=== PATIENT | female | born 1935 | race Caucasian/White ===

== ENCOUNTER 2018-03-10 12:21 | Emergency (ER) | payer OTHER ==
[~2018-03-10] VITALS: Ht 157.5 cm; Wt 72.6 kg
[2018-03-10] MEDS ORDERED: TYLENOL WITH C1 EACH PO (14:46)
[2018-03-10] MEDS ORDERED: ARICEPT5 MG PO (15:06)
[2018-03-10] MEDS ORDERED: LOSARTAN POTASS25 MG PO (15:06)
[2018-03-10] MEDS ORDERED: AMLODIPINE BESYL5 MG PO (15:06)
[2018-03-10] MEDS ORDERED: HYDROCHLOROTHIA25 MG PO (15:06)
[2018-03-10] MEDS ORDERED: ATORVASTATIN CA20 MG PO (15:06)
[2018-03-10] MEDS ORDERED: METFORMIN HCL500 MG PO (15:06)
[2018-03-10] MEDS ORDERED: VENTOLIN HFA18 GM (15:06)
[2018-03-10] MEDS ORDERED: SYMBICORT 16010.2 GM (15:06)
[2018-03-10] MEDS ORDERED: GLIMEPIRIDE2 MG PO (15:06)
[2018-03-10] MEDS ORDERED: LEVOTHYROXINE88 MCG PO (15:06)
== END 2018-03-10 15:00 | disposition home or self-care (01) ==
LOC: FSED 12:21
DX: S92.355A Nondisplaced fracture of fifth metatarsal bone, left foot, initial encounter for closed fracture (principal); X50.1XXA Overexertion from prolonged static or awkward postures, initial encounter; Y92.008 Other place in unspecified non-institutional (private) residence as the place of occurrence of the external cause; I10 Essential (primary) hypertension; J44.9 Chronic obstructive pulmonary disease, unspecified; E11.9 Type 2 diabetes mellitus without complications; E78.5 Hyperlipidemia, unspecified
CPT/HCPCS: 99283

== ENCOUNTER 2018-03-14 16:18 | Inpatient (IN) | payer OTHER ==
[~2018-03-14] VITALS: Ht 157.5 cm; Wt 85.5 kg
[~2018-03-14 16:18] MED LIST: AMLODIPINE BESYL5 MG PO; ARICEPT5 MG PO; ATORVASTATIN CA20 MG PO; GLIMEPIRIDE2 MG PO; HYDROCHLOROTHIA25 MG PO; LEVOTHYROXINE88 MCG PO; LOSARTAN POTASS25 MG PO; METFORMIN HCL500 MG PO; SYMBICORT 16010.2 GM; TYLENOL WITH C1 EACH PO; VENTOLIN HFA18 GM
[2018-03-14] MEDS ORDERED: ONDANSETRON HCL INJ 2 MG/ML VIAL IV ONE (16:45)
[2018-03-14 16:48] LABS: BASOPHILS # (AUTO) 0.1 (0.0-0.1); BASOPHILS % 0.5 % (0.0-1.0); EOSINOPHILS # (AUTO) 0.1 (0.0-0.4); EOSINOPHILS % 0.8 % (0.0-6.0); HEMATOCRIT 45.3 % (34.2-44.1); HEMOGLOBIN 15.4 g/dL (12.0-16.0); LYMPHOCYTES # (AUTO) 2.5 (1.0-3.2); LYMPHOCYTES % 26.7 % (18.0-39.1); MEAN CORPUSCULAR HEMOGLOBIN 30.6 pg (28-32); MEAN CORPUSCULAR VOLUME 89.9 fL (81-99); MONOCYTES # (AUTO) 0.8 (0.2-0.8); MONOCYTES % 8.3 % (4.4-11.3); NEUTROPHILS # (AUTO) 5.9 (2.1-6.9); NEUTROPHILS % 63.3 % (38.7-80.0); PLATELET COUNT 289 x10e3/uL (140-360); RED BLOOD COUNT 5.04 x10e6/uL (3.6-5.1); RED CELL DISTRIBUTION WIDTH 14.5 % (11.7-14.4)
--- NOTE | 2018-03-14 17:18 | Diagnostic Imaging Report ---
PROCEDURE: A single AP view of the chest. COMPARISON: None. INDICATIONS: SOB FINDINGS: Lines/tubes: None. Lungs: The lungs are well-inflated. Linear opacity in the left midlung likely represent subsegmental atelectasis or scarring. No consolidation. Pleura: There is no pleural effusion or pneumothorax. Heart and mediastinum: Mild prominence of the cardiac silhouette, which may be partly due to portable AP projection. Central pulmonary venous congestion and perihilar interstitial opacities, likely reflecting mild edema. Bones: No acute bony abnormality. IMPRESSION: 1. central pulmonary venous congestion and perihilar interstitial opacities, likely reflecting mild edema/fluid overload. 2. Left midlung subsegmental atelectasis or scarring. Margarito Burnett M.D. Dictated by: Margarito Burnett M.D. on 03/14/2018 at 17:23 Electronically approved by: Margarito Burnett M.D. on 03/14/2018 at 17:23
[2018-03-14 18:22] LABS: ALANINE AMINOTRANSFERASE 16 IU/L (0-55); ALBUMIN 3.5 g/dL (3.5-5.0); ALBUMIN/GLOBULIN RATIO 0.9 (0.8-2.0); ALKALINE PHOSPHATASE 100 IU/L (40-150); ANION GAP 16.1 mmol/L (8-16); BLOOD UREA NITROGEN 20 mg/dL (7-26); BUN/CREATININE RATIO 25 (6-25); CALCIUM 9.4 mg/dL (8.4-10.2); CARBON DIOXIDE 31 mmol/L (22-29); CHLORIDE 97 mmol/L (98-107); CREATINE KINASE 357 IU/L (29-168); CREATININE, SERUM 0.81 mg/dL (0.57-1.11); EST GLOMERULAR FILTRATION RATE > 60 ML/MIN (60-); GLUCOSE 152 mg/dL (74-118); LIPASE 105 U/L (8-78); POTASSIUM 3.1 mmol/L (3.5-5.1); SODIUM 141 mmol/L (136-145)
[2018-03-14 19:41] LABS: BILIRUBIN,URINE NEGATIVE (NEGATIVE); CLARITY,URINE CLEAR (CLEAR); COLOR,URINE YELLOW (YELLOW); KETONES,URINE NEGATIVE (NEGATIVE); LEUKOCYTE ESTERASE ,URINE NEGATIVE (NEGATIVE); NITRITE,URINE NEGATIVE (NEGATIVE); PROTEIN,URINE DIPSTICK NEGATIVE (NEGATIVE); URINE UROBILINOGEN 0.2 mg/dL (0.2 - 1)
[2018-03-14] MEDS ORDERED: FUROSEMIDE INJ 10 MG/ML 4 ML VIAL IV ONE (19:45)
[2018-03-14 19:52] LABS: BACTERIA,URINE RARE /HPF; EPITHELIAL CELLS,URINE MANY /LPF; MUCUS,URINE FEW (RARE); RBC,URINE 0-5 /HPF (0-5)
--- NOTE | 2018-03-14 20:11 | Diagnostic Imaging Report ---
EXAM: CT Chest WITH contrast 03/14/2018 4:27 PM INDICATION: Shortness of breath. Cough. Pain. Pulmonary embolism? COMPARISON: None TECHNIQUE: Chest was scanned utilizing a multidetector helical scanner from the lung apex through the level of the adrenal glands without administration of IV contrast. Coronal and sagittal reformations were obtained. Pulmonary embolism protocol was performed. IV CONTRAST: 100 mL Isovue-370 RADIATION DOSE: Total DLP: 507.91 mGy*cm Estimated effective dose: (DLP x 0.014 x size factor) mSv COMPLICATIONS: None FINDINGS: LINES/ TUBES: None. LUNGS AND AIRWAYS: No filling defects within the pulmonary arteries to the segmental level bilaterally. Bilateral upper lobe emphysematous changes. Right basilar and lingular subsegmental linear atelectasis. PLEURA: No pleural effusion or pneumothorax. HEART AND MEDIASTINUM: Calcification the left thyroid lobe posteriorly. No mediastinal, hilar or axillary lymphadenopathy. The heart is normal in size. Left ventricular hypertrophy versus image obtaining during diastolic phase. There is no pericardial effusion. There are moderate atherosclerotic calcifications in the aorta and coronary arteries. Soft ulcerated plaque in the posterior aspect of the distal descending thoracic aorta on image 85and 86 and series 2. The main pulmonary artery measures 3.1 cm in diameter, mildly dilated. UPPER ABDOMEN: Limited non-contrast views of the upper abdomen show no abnormality within the visualized liver, spleen, pancreas, or kidneys. The adrenal glands demonstrate low-attenuation nodules the largest on the right measuring 1.4 cm on image 106 series 2 consistent with adenomata. BONES: No acute osseous abnormality. Bone island in a mid thoracic vertebra. Degenerative changes of the lower cervical spine. SOFT TISSUES: Unremarkable. IMPRESSION: 1. No evidence of pulmonary embolism. 2. Bilateral upper lobe emphysematous changes. 3. Bilateral subsegmental linear atelectasis. Signed by: Dr. El Balderas M.D. on 03/14/2018 8:08 PM
[2018-03-14] MEDS ORDERED: IPRATROPIUM BROMIDE 0.02% 2.5 ML NEB NEB ONE (21:30)
[2018-03-14] MEDS ORDERED: METHYLPREDNISOLONE SOD SUCC 125 MG/2ML VIAL IV ONE (21:30)
[2018-03-14] MEDS ORDERED: ALBUTEROL SULF 0.083% NEB SOLN 3 ML NEB NEB ONE (21:45)
[2018-03-14 21:54] LABS: ABG HCO3 40 mmol/L (23-28); ABG PCO2 79 mmHg (41-51); ABG PH 7.31 (7.31-7.41); ABG PO2 131 mmHg (80-105)
[2018-03-14] MEDS: METHYLPREDNISOLONE SOD SUCC 125 MG/2ML VIAL IV SCH (22:00)
[2018-03-14] MEDS ORDERED: ONDANSETRON HCL INJ 2 MG/ML VIAL IV PRN (22:00)
[2018-03-14] MEDS ORDERED: SODIUM CHLORIDE 0.9% 100 ML 100 ML ONE (22:30)
[2018-03-14] MEDS ORDERED: IOPAMIDOL 370 MG/ML 200 ML INFUS..BTL INJ ONE (22:30)
[2018-03-14] MEDS: IPRATROPIUM BROMIDE 0.02% 2.5 ML NEB NEB SCH (23:00)
[2018-03-14] MEDS: ALBUTEROL SULF 0.083% NEB SOLN 3 ML NEB NEB SCH (23:00)
[2018-03-14 23:43] LABS: ABG HCO3 18 mmol/L (23-28); ABG PCO2 66 mmHg (41-51); ABG PH 7.42 (7.31-7.41); ABG PO2 222 mmHg (80-105)
[2018-03-15] VITALS (12 sets, daily range): BP systolic 95–157; BP diastolic 47–95
[2018-03-15] MEDS: AZITHROMYCIN 500MG/NS 250 ML 250 ML IV SCH ×2 (00:57→21:05)
[2018-03-15] MEDS: FAMOTIDINE 20 MG/2 ML VIAL IV SCH ×3 (00:58→22:02)
[2018-03-15] MEDS: ALBUTEROL SULF 0.083% NEB SOLN 3 ML NEB NEB SCH ×6 (02:40→23:30)
[2018-03-15] MEDS: IPRATROPIUM BROMIDE 0.02% 2.5 ML NEB NEB SCH ×6 (03:15→23:30)
[2018-03-15] MEDS: METHYLPREDNISOLONE SOD SUCC 125 MG/2ML VIAL IV SCH ×3 (05:58→22:02)
[2018-03-15 06:36] LABS: BASOPHILS % 0.3 % (0.0-1.0); HEMATOCRIT 44.6 % (34.2-44.1); HEMOGLOBIN 14.3 g/dL (12.0-16.0); LYMPHOCYTES # (AUTO) 0.7 (1.0-3.2); LYMPHOCYTES % 7.9 % (18.0-39.1); MEAN CORPUSCULAR HEMOGLOBIN 29.9 pg (28-32); MEAN CORPUSCULAR HGB CONC 32.1 g/dL (31-35); MEAN CORPUSCULAR VOLUME 93.3 fL (81-99); MONOCYTES # (AUTO) 0.1 (0.2-0.8); MONOCYTES % 1.5 % (4.4-11.3); NEUTROPHILS # (AUTO) 8.3 (2.1-6.9); NEUTROPHILS % 89.9 % (38.7-80.0); PLATELET COUNT 320 x10e3/uL (140-360); RED BLOOD COUNT 4.78 x10e6/uL (3.6-5.1); RED CELL DISTRIBUTION WIDTH 14.4 % (11.7-14.4)
[2018-03-15 07:14] LABS: ALBUMIN 3.3 g/dL (3.5-5.0); ALBUMIN/GLOBULIN RATIO 0.9 (0.8-2.0); ANION GAP 17.1 mmol/L (8-16); CHOL/HDL RATIO 2.6 (3.0-3.6); CREATINE KINASE 225 IU/L (29-168); CREATININE, SERUM 0.92 mg/dL (0.57-1.11); POTASSIUM 4.1 mmol/L (3.5-5.1)
[2018-03-15 08:18] LABS: ABG PH 7.33 (7.31-7.41)
[2018-03-15 08:20] LABS: ABG HCO3 41 mmol/L (23-28); ABG PCO2 78 mmHg (41-51); ABG PO2 105 mmHg (80-105)
[2018-03-15] MEDS ORDERED: ACETAMINOPHEN 325 MG TAB PO PRN (12:45)
[2018-03-15] MEDS ORDERED: DEXTROSE 50% SYRINGE 50 ML IV PRN (12:45)
[2018-03-15] MEDS ORDERED: ONDANSETRON HCL INJ 2 MG/ML VIAL IV PRN (12:45)
[2018-03-15] MEDS ORDERED: FUROSEMIDE INJ 10 MG/ML 4 ML VIAL IV NR (13:00)
--- NOTE | 2018-03-15 13:25 | History and Physical ---
CHIEF COMPLAINT: Shortness of breath. HPI: This is an 82-year-old female, morbidly obese, known history of COPD, currently smoking and has history of hypertension and diabetes, comes into the ED with complaints of underlying shortness of breath ongoing since yesterday. Patient reports she was having some wheezing, cough and congestion but no fever at home. She reports that she is being managed currently by her primary care physician. She does not see a greenhouse superintendent as an outpatient. She denies any chest pain, palpitations, nausea or vomiting. Patient seen and evaluated at bedside in the ER, currently doing well with no other complaints. Last night, she was on BiPAP and now weaned off to nasal cannula, currently on 10 liters, and her blood pressure is stable. REVIEW OF SYSTEMS: Pertinent positives: Shortness of breath, wheezing, cough, congestion. Pertinent negatives: Denies any chest pain, palpitations, nausea, vomiting, diarrhea, dysuria, hematuria, frequency, urgency, lightheadedness, dizziness, abdominal pain, headache, fever, cough or any other complaints. The rest of the 14-point review of systems has been reviewed with the patient and are negative. ALLERGIES: NO KNOWN DRUG ALLERGIES. HOME MEDICATIONS 1. Albuterol. 2. Norvasc 5 mg daily. 3. Lipitor 20 mg daily. 4. Symbicort 1 puff inhaled daily. 5. Aricept 10 mg daily. 6. Glimepiride 2 mg p.o. b.i.d. 7. Hydrochlorothiazide 25 mg daily. 8. Levothyroxine 188 mcg daily. 9. Losartan 25 mg daily. 10. Metformin 500 mg b.i.d. PAST MEDICAL HISTORY: COPD, diabetes, dementia, hyperlipidemia, hypertension. PAST SURGICAL HISTORY: None. FAMILY HISTORY: Hypertension, diabetes. SOCIAL HISTORY: No drugs, no alcohol. She does smoke, and she continues to smoke. VITAL SIGNS: Temperature is 97.5, pulse 77, respiratory rate 20, blood pressure 106/61, pulse ox 97%. She is on 10 liters nasal cannula. LAB FINDINGS: White count 9.2, hemoglobin 14, hematocrit 44, platelets 320. ABG showed pH 7.3, pCO2 of 78, pO2 is 105, bicarbonate is 41, FiO2 is 60%. Chemistry: Sodium 142, potassium 4.1, chloride 92, bicarb 37, anion gap 11, BUN 18, creatinine 0.9, calcium 9. Troponin is negative. Lipase 105. BNP is 43.9. Urinalysis was negative. MICROBIOLOGY: Blood cultures pending. IMAGING STUDIES: Chest x-ray shows central venous vascular congestion and perihilar issues likely reflecting edema of fluid overload. CT chest shows no evidence of pulmonary embolism. Bilateral upper lobe emphysematous changes. PHYSICAL EXAMINATION GENERAL: Not in acute distress. Alert and oriented x3. Cooperative on exam. HEENT: Head is normocephalic and atraumatic. Eyes: Pupils are equal and reactive to light bilaterally. The extraocular movements are intact bilaterally. NECK: Supple with good range of motion. THROAT: No evidence of severe erythema or exudates. The posterior pharynx has poor dentition. PULMONARY: Expiratory wheezing appreciated, positive rales. She is on 10 liters nasal cannula. No crackles appreciated. CARDIOVASCULAR: Positive S1, S2. No murmurs, rubs or gallops appreciated. ABDOMEN: Soft, nondistended and nontender to palpation. Bowel sounds are present. MUSCULOSKELETAL: Strength is 5/5 throughout. No evidence of any musculoskeletal deficit on examination. No weakness appreciated. NEUROLOGIC: Cranial nerves II through XII are grossly intact. No evidence of any neurologic deficits on exam. SKIN: Intact, warm to touch. Good cap refill. PSYCHIATRIC: Normal affect. EXTREMITIES: No edema. Good range of motion throughout. IMPRESSION 1. Acute exacerbation of chronic obstructive pulmonary disease. 2. Hypertension. 3. Type-2 diabetes. 4. Acute hypoxemia respiratory failure secondary to acute exacerbation of chronic obstructive pulmonary disease. 5. Prophylaxis. 6. Hypothyroidism. PLAN: At this time, pulmonary has been consulted. She is on IV steroid, neb treatments and antibiotics. We are going to resume all of her antihypertensive medications. Put on Lovenox for DVT prophylaxis. Blood cultures are pending. Put on insulin sliding scale for her diabetes. Pain control. P.R.N. hydralazine. Otherwise, we will continue to follow. Job#: [id number]
--- NOTE | 2018-03-15 14:27 | Consultation ---
DATE OF CONSULTATION: PULMONARY/CRITICAL CARE CONSULTATION CONSULTING PHYSICIAN: Dr. Sauer. REASON FOR THE CONSULT: COPD exacerbation, respiratory failure. HPI: Ms. Davenport is an 82-year-old female. She is a smoker for 60 years, she smokes a pack a day. She presented to the emergency room with worsening shortness of breath going on for last 3 to 4 days. A week ago, she fell and she had a possible tarsal bone fracture per the daughter's report and she has a boot, which was placed by a freestanding emergency room in the left foot. In the emergency room, patient underwent CT chest to rule out PE as she had this boot in the left leg and immobility. CT showed no evidence of pulmonary embolism, showed some atelectasis. She was hypercapnic in the emergency room and patient was started on BiPAP and she has been feeling better. She is awake and alert now. She is still hypercapnic with a normal pH. REVIEW OF SYSTEMS GENERAL: Denies any fevers or chills. HEAD: Denies any head trauma. ENT: Denies any earache. CVS: Denies any chest pain. RESPIRATORY: Shortness of breath. GI: Denies any nausea or vomiting. The rest of the review of systems is negative except as in HPI. PAST MEDICAL HISTORY: Hypertension, diabetes, and COPD. PAST SURGICAL HISTORY: Bladder cancer surgery. FAMILY AND SOCIAL HISTORY: She used to work in [employer]. She has been a smoker for 60 years, still smokes a pack a day. She does not drink. Lives with her daughter. PHYSICAL EXAMINATION VITAL SIGNS: Temperature 98.6, pulse is 74, blood pressure 108/60, respiratory rate of 18, O2 sat 99%. She is on 60% FiO2 and I weaned down to 50% FiO2 on BiPAP. She has been feeling better. HEENT: Head atraumatic, normocephalic. Oral mucosa is dry. NECK: Supple. No JVD. CHEST: Wheezing bilaterally. HEART: S1 and S2 audible. ABDOMEN: Soft, nontender, nondistended. EXTREMITIES: No pedal edema. Left leg in boot. NEUROLOGIC: Awake, alert. No focal neurologic deficit. LABORATORY DATA: ABG showing pH of 7.33, pCO2 of 78, this was this morning. Last night when she came in, pH was 7.3 and pCO2 of 79. Chemistries within normal limits with a bicarb of 37. On admission, her bicarbonate was 31. White count of 9000, hemoglobin 14.3, platelets 320. I have reviewed the CT images, there is no evidence of pneumonia. ASSESSMENT: Ms. Davenport is an 82-year-old female presented to the emergency room with worsening shortness of breath, wheezing, and coughing. She is a smoker, likely in acute chronic obstructive pulmonary disease exacerbation. She has clwic-gu-dmnopfw hypercapnic respiratory failure with her bicarbonate at baseline being in 30s. CURRENT PROBLEMS 1. Acute exacerbation of chronic obstructive pulmonary disease. 2. Dtnta-pz-awagytu hypercapnic respiratory failure. 3. Obesity. 4. Hypertension. 5. Recent immobility due to the fracture of the tarsal bone and she has a boot in her left leg. PLAN 1. Continue the patient on IV Solu-Medrol. 2. Nebulizer treatment will continue. 3. BiPAP setting reviewed, observed her on BiPAP at bedside. She is pulling around 1200 mL of tidal volume. Reduce the IPAP and EPAP and reduce the FiO2. She has been doing well. I have asked the respiratory to give her a break from BiPAP and oxygen and see how she is doing. Patient will be observed in IMCU or ICU because of BiPAP use. Discussed with patient's daughter at bedside in detail. Critical care time spent 50 minutes. Thank you for this consult. Job#: [id number] KATY
[2018-03-15 15:03] LABS: CREATINE KINASE 179 IU/L (29-168)
[2018-03-15] MEDS: ENOXAPARIN SOD INJ 40 MG/0.4 ML SYR SC SCH (17:31)
[2018-03-15] MEDS: GLIMEPIRIDE 2 MG TAB PO SCH (17:31)
[2018-03-15] MEDS: INSULIN REGULAR, HUMAN 100 UNIT/1 ML 3ML VIAL SQ SCH ×2 (17:31→21:31)
[2018-03-15] MEDS ORDERED: CLOTRIMAZOLE-BE15 GM TOP (19:15)
[2018-03-15] MEDS ORDERED: FUROSEMIDE INJ 10 MG/ML 2 ML VIAL IV ONE (19:30)
[2018-03-15] MEDS ORDERED: SODIUM CHLORIDE 0.9% 250ML 250 ML ONE (20:54)
[2018-03-15] MEDS: DONEPEZIL HCL 5 MG TAB PO SCH (21:04)
[2018-03-15] MEDS: ATORVASTATIN 20 MG TAB PO SCH (21:05)
[2018-03-16] VITALS (7 sets, daily range): BP systolic 104–140; BP diastolic 53–75
[2018-03-16] MEDS: IPRATROPIUM BROMIDE 0.02% 2.5 ML NEB NEB SCH ×6 (03:00→23:00)
[2018-03-16] MEDS: ALBUTEROL SULF 0.083% NEB SOLN 3 ML NEB NEB SCH ×6 (03:00→23:00)
[2018-03-16 05:20] LABS: BASOPHILS % 0.1 % (0.0-1.0); HEMATOCRIT 40.7 % (34.2-44.1); HEMOGLOBIN 13.2 g/dL (12.0-16.0); LYMPHOCYTES # (AUTO) 0.5 (1.0-3.2); LYMPHOCYTES % 4.4 % (18.0-39.1); MEAN CORPUSCULAR HEMOGLOBIN 30.2 pg (28-32); MEAN CORPUSCULAR HGB CONC 32.4 g/dL (31-35); MEAN CORPUSCULAR VOLUME 93.1 fL (81-99); MONOCYTES # (AUTO) 0.4 (0.2-0.8); MONOCYTES % 2.9 % (4.4-11.3); NEUTROPHILS # (AUTO) 11.4 (2.1-6.9); NEUTROPHILS % 92.3 % (38.7-80.0); PLATELET COUNT 305 x10e3/uL (140-360); RED BLOOD COUNT 4.37 x10e6/uL (3.6-5.1); RED CELL DISTRIBUTION WIDTH 13.9 % (11.7-14.4)
[2018-03-16 05:36] LABS: ANION GAP 16.3 mmol/L (8-16); CALCIUM 8.5 mg/dL (8.4-10.2); CREATININE, SERUM 0.93 mg/dL (0.57-1.11); POTASSIUM 3.3 mmol/L (3.5-5.1)
[2018-03-16] MEDS: METHYLPREDNISOLONE SOD SUCC 125 MG/2ML VIAL IV SCH (05:41)
[2018-03-16] MEDS: LEVOTHYROXINE SODIUM 88 MCG TAB PO SCH (05:41)
[2018-03-16] MEDS ORDERED: BUDESONIDE/FORMOTEROL 160/4.5MCG INHALER INH SCH (06:00)
[2018-03-16] MEDS: INSULIN REGULAR, HUMAN 100 UNIT/1 ML 3ML VIAL SQ SCH ×4 (06:35→20:57)
[2018-03-16] MEDS: HYDROCHLOROTHIAZIDE 25 MG TAB PO SCH (09:00)
[2018-03-16] MEDS: GLIMEPIRIDE 2 MG TAB PO SCH ×2 (09:00→17:28)
[2018-03-16] MEDS: AMLODIPINE BESYLATE 5 MG TAB PO SCH (09:00)
[2018-03-16] MEDS: LOSARTAN POTASSIUM 25 MG TAB PO SCH (09:00)
[2018-03-16] MEDS: FAMOTIDINE 20 MG/2 ML VIAL IV SCH ×2 (09:20→20:59)
[2018-03-16] MEDS: BUDESONIDE/FORMOTEROL 160/4.5MCG INHALER INH SCH ×2 (12:09→19:05)
[2018-03-16] MEDS ORDERED: POTASSIUM CHLORIDE 20MEQ/15ML UDC PO NR (13:15)
[2018-03-16] MEDS ORDERED: METHYLPREDNISOLONE SOD SUCC 40 MG/ML VIAL IV SCH ×2 (14:00→21:00)
[2018-03-16] MEDS ORDERED: INSULIN REGULAR, HUMAN 100 UNIT/1 ML 3ML VIAL SQ ONE (14:30)
[2018-03-16] MEDS: ENOXAPARIN SOD INJ 40 MG/0.4 ML SYR SC SCH (17:28)
--- NOTE | 2018-03-16 20:08 | Progress Note ---
DATE: SUBJECTIVE: The patient is doing well overnight with no issues. She is still very short of breath on examination. She has been afebrile and vitals were stable. She is tolerating diet well. Still on 8 L of nasal cannula. PHYSICAL EXAMINATION VITAL SIGNS: Temperature is 97.2, pulse 86, respiratory rate 12, blood pressure 121/63, and she is on 8 L nasal cannula as we speak. GENERAL: Not in acute distress. Alert and oriented times 3. Cooperative on examination. HEENT: Head is normocephalic and atraumatic. Eyes: Pupils equal, round and reactive to light bilaterally. Extraocular muscles intact bilaterally. NECK: Supple. Good range of motion. Throat with no evidence of any erythema or exudates in the posterior pharynx. Has poor dentition. PULMONARY: She has decreased breath sounds bilaterally with expiratory wheezing appreciated. No crackles. No rales. No rhonchi. CARDIOVASCULAR: Positive S1 and S2. No murmurs, rubs or gallops appreciated. ABDOMEN: Soft, nondistended and nontender to palpation. Bowel sounds present. MUSCULOSKELETAL: Strength is 5/5 throughout. No evidence of muscle weakness on examination. No weakness appreciated. NEUROLOGICAL: Cranial nerves II-XII are grossly intact. No evidence of any neurological deficit on exam. SKIN: Intact. Warm to touch. Good cap refill. PSYCHIATRIC: Normal affect and mood. EXTREMITIES: No edema. Good range of motion throughout. LAB FINDINGS: Shows white count is 12.3, hemoglobin 13.2, hematocrit 40, and platelets of 305,000. Chemistry: Sodium 137, potassium 3.3, chloride 93, bicarb 31, anion gap of 16, BUN is 33, creatinine is 0.93. Glucose was 322 point of care. Calcium is 8.5. Troponins were negative. MICROBIOLOGY: Blood cultures were negative. IMPRESSION 1. Acute exacerbation of chronic obstructive pulmonary disease. 2. Hypertension. 3. Uncontrolled type 2 diabetes. 4. Acute hypoxemic respiratory failure secondary to acute exacerbation of chronic obstructive pulmonary disease. 5. Hypothyroidism. PLAN: At this time, will continue same plan of care with IV steroids, neb treatments and antibiotics. The patient's sugars are really out of control, which I will decrease the Solu-Medrol to 40 mg IV q.12 h. Pulmonary is following. She is still on 8 L nasal cannula, and she still has significant amount of time here before she is able to be discharged. Her blood pressure is well managed and controlled. Her glucose levels have been really high in which the insulin was adjusted accordingly. The patient was given several rounds of regular insulin during the day as well. Will try minimize blood draws as the family does not want any blood sticks. Will continue to follow. Job#: [id number] DEEPTHI
[2018-03-16] MEDS: ATORVASTATIN 20 MG TAB PO SCH (20:57)
[2018-03-16] MEDS: DONEPEZIL HCL 5 MG TAB PO SCH (20:57)
[2018-03-16] MEDS: AZITHROMYCIN 500MG/NS 250 ML 250 ML IV SCH (20:57)
[2018-03-17] VITALS (7 sets, daily range): BP systolic 122–154; BP diastolic 52–86
[2018-03-17] MEDS: ALBUTEROL SULF 0.083% NEB SOLN 3 ML NEB NEB SCH ×7 (03:54→22:20)
[2018-03-17] MEDS: IPRATROPIUM BROMIDE 0.02% 2.5 ML NEB NEB SCH ×6 (04:30→22:20)
[2018-03-17] MEDS ORDERED: LORAZEPAM 0.5 MG TAB PO ONE (04:45)
[2018-03-17] MEDS: LEVOTHYROXINE SODIUM 88 MCG TAB PO SCH (04:56)
[2018-03-17] MEDS: BUDESONIDE/FORMOTEROL 160/4.5MCG INHALER INH SCH ×2 (07:37→19:15)
[2018-03-17] MEDS: GLIMEPIRIDE 2 MG TAB PO SCH ×2 (08:00→16:48)
[2018-03-17] MEDS: INSULIN REGULAR, HUMAN 100 UNIT/1 ML 3ML VIAL SQ SCH ×4 (08:05→21:29)
[2018-03-17] MEDS: HYDROCHLOROTHIAZIDE 25 MG TAB PO SCH (09:00)
[2018-03-17] MEDS: AMLODIPINE BESYLATE 5 MG TAB PO SCH (09:00)
[2018-03-17] MEDS: LOSARTAN POTASSIUM 25 MG TAB PO SCH (09:00)
[2018-03-17] MEDS: FAMOTIDINE 20 MG/2 ML VIAL IV SCH ×2 (10:00→22:08)
[2018-03-17] MEDS: PANTOPRAZOLE SOD 40 MG TABEC PO SCH (11:00)
[2018-03-17] MEDS ORDERED: SUCRALFATE 1 GM/10 ML SUSP NG PRN (11:00)
[2018-03-17] MEDS: NICOTINE 21 MG/EA PATCH TOP SCH (11:15)
[2018-03-17] MEDS: ENOXAPARIN SOD INJ 40 MG/0.4 ML SYR SC SCH (16:48)
--- NOTE | 2018-03-17 17:26 | Progress Note ---
DATE: SUBJECTIVE: The patient is still on 8-10 L of high flow oxygen. She still is very short of breath. She also has some sundowning overnight in which she tries to get out of the bed. The patient is alert and oriented times 3 on examination today with no other issues. OBJECTIVE VITAL SIGNS: Temperature is 98.4, pulse 88, respiratory rate 18. She is on 100% oxygen on 10 L high flow. GENERAL: Not in acute distress. Alert and oriented times 3. Cooperative on examination. HEENT: Head is normocephalic and atraumatic. Eyes: Pupils equal, round and reactive to light bilaterally. Extraocular movements intact bilaterally. NECK: Supple. Good range of motion. Throat with no evidence of any erythema or exudates in the posterior pharynx. Has poor dentition. PULMONARY: She has expiratory wheezing appreciated on 10 L of high flow oxygen. CARDIOVASCULAR: Positive S1 and S2. No murmurs, rubs or gallops appreciated. ABDOMEN: Soft, nondistended and nontender to palpation. Bowel sounds present. MUSCULOSKELETAL: Strength is 5/5 throughout. No evidence of any motor deficit on examination. No weakness appreciated. NEUROLOGICAL: Cranial nerves II-XII are grossly intact. No evidence of any neurological deficits on exam. SKIN: Intact. Warm to touch. Good cap refill. PSYCHIATRIC: Normal affect and mood. EXTREMITIES: No edema. Good range of motion throughout. LAB FINDINGS: None. IMAGING STUDIES: None. IMPRESSION 1. Acute exacerbation of chronic obstructive pulmonary disease: Still on 10 L nasal cannula high flow. 2. Hypertension. 3. Uncontrolled type 2 diabetes. 4. Acute hypoxemic respiratory failure secondary to acute exacerbation of chronic obstructive pulmonary disease. 5. Hypothyroidism. PLAN: At this time, will continue with IV steroids q.12 h. Her glucose levels are much improved at 170 point of care right now. Continue with neb treatments and IV antibiotics. We are going to give her some p.r.n. Haldol, as well as p.r.n. Seroquel for sundowning. Once the patient improves in terms of off of high flow oxygen, will try to transition her to nasal cannula and consider home O2. We are going to get a.m. labs. Discussed plan of care with nursing staff, patient and daughter at bedside. Job#: [id number] DEEPTHI
[2018-03-17] MEDS: DONEPEZIL HCL 5 MG TAB PO SCH (21:29)
[2018-03-17] MEDS: METHYLPREDNISOLONE SOD SUCC 40 MG/ML VIAL IV SCH (21:29)
[2018-03-17] MEDS: ATORVASTATIN 20 MG TAB PO SCH (21:29)
[2018-03-17] MEDS: HALOPERIDOL 5 MG TAB PO PRN (21:30)
[2018-03-17] MEDS: AZITHROMYCIN 500MG/NS 250 ML 250 ML IV SCH (22:08)
[2018-03-18] VITALS (7 sets, daily range): BP systolic 140–160; BP diastolic 78–84
[2018-03-18] MEDS: IPRATROPIUM BROMIDE 0.02% 2.5 ML NEB NEB SCH ×6 (03:10→22:40)
[2018-03-18] MEDS: ALBUTEROL SULF 0.083% NEB SOLN 3 ML NEB NEB SCH ×6 (03:10→22:40)
[2018-03-18 05:36] LABS: ANION GAP 15.7 mmol/L (8-16); BLOOD UREA NITROGEN 25 mg/dL (7-26); BUN/CREATININE RATIO 32 (6-25); CALCIUM 8.8 mg/dL (8.4-10.2); CARBON DIOXIDE 35 mmol/L (22-29); CHLORIDE 93 mmol/L (98-107); CREATININE, SERUM 0.78 mg/dL (0.57-1.11); EST GLOMERULAR FILTRATION RATE > 60 ML/MIN (60-); GLUCOSE 246 mg/dL (74-118); POTASSIUM 3.7 mmol/L (3.5-5.1); SODIUM 140 mmol/L (136-145)
[2018-03-18] MEDS: HALOPERIDOL 5 MG TAB PO PRN (05:58)
[2018-03-18 06:12] LABS: BASOPHILS % 0.2 % (0.0-1.0); EOSINOPHILS % 0.1 % (0.0-6.0); HEMOGLOBIN 14.3 g/dL (12.0-16.0); LYMPHOCYTES # (AUTO) 0.7 (1.0-3.2); MEAN CORPUSCULAR HEMOGLOBIN 30.4 pg (28-32); MEAN CORPUSCULAR HGB CONC 33.3 g/dL (31-35); MEAN CORPUSCULAR VOLUME 91.3 fL (81-99); MONOCYTES # (AUTO) 0.6 (0.2-0.8); MONOCYTES % 4.8 % (4.4-11.3); NEUTROPHILS # (AUTO) 10.2 (2.1-6.9); NEUTROPHILS % 88.3 % (38.7-80.0); PLATELET COUNT 237 x10e3/uL (140-360); RED BLOOD COUNT 4.71 x10e6/uL (3.6-5.1); RED CELL DISTRIBUTION WIDTH 14.4 % (11.7-14.4)
[2018-03-18] MEDS: LEVOTHYROXINE SODIUM 88 MCG TAB PO SCH (06:55)
[2018-03-18] MEDS: PANTOPRAZOLE SOD 40 MG TABEC PO SCH (08:10)
[2018-03-18] MEDS: INSULIN REGULAR, HUMAN 100 UNIT/1 ML 3ML VIAL SQ SCH ×4 (08:12→22:08)
[2018-03-18] MEDS: GLIMEPIRIDE 2 MG TAB PO SCH ×2 (08:12→16:42)
[2018-03-18] MEDS: METHYLPREDNISOLONE SOD SUCC 40 MG/ML VIAL IV SCH ×2 (08:14→21:48)
[2018-03-18] MEDS: NICOTINE 21 MG/EA PATCH TOP SCH (08:27)
[2018-03-18] MEDS: LOSARTAN POTASSIUM 25 MG TAB PO SCH (08:27)
[2018-03-18] MEDS: HYDROCHLOROTHIAZIDE 25 MG TAB PO SCH (08:27)
[2018-03-18] MEDS: AMLODIPINE BESYLATE 5 MG TAB PO SCH (08:27)
[2018-03-18] MEDS: FAMOTIDINE 20 MG/2 ML VIAL IV SCH ×2 (11:40→22:20)
--- NOTE | 2018-03-18 15:18 | Progress Note ---
DATE: March 18, 2018 SUBJECTIVE: Patient is still on 5 to 6 liters of nasal cannula. They ambulated the patient, and she would desat tremendously. Patient worked with Physical Therapy. We are working on home O2. She refuses custodial facility placement. OBJECTIVE VITAL SIGNS: Temperature is 98.4, pulse 88, respiratory rate is 20, pulse ox 94%. She is on approximately 6 liters of nasal cannula. LAB FINDINGS: Show a white count of 11.4, hemoglobin 14.3, hematocrit is 43, platelets of 237. Chemistry: Sodium 140, potassium 3.7, chloride 93, bicarb 35, anion gap of 15, BUN is 25, creatinine is 0.78. Urinalysis, none. MICROBIOLOGY: Blood cultures were negative. IMAGING STUDIES: None. PHYSICAL EXAMINATION GENERAL: Not in acute distress. Alert, oriented x3, cooperative on examination. HEENT: Head: Normocephalic, atraumatic. Eyes: Pupils equally round and reactive to light bilaterally. Extraocular movements intact bilaterally. Neck was supple with good range of motion. Throat: No evidence of any erythema or exudates in the posterior pharynx. Has poor dentition. PULMONARY: She has expiratory wheezing appreciated throughout, is on nasal cannula oxygen. No crackles, no rales, no rhonchi. Is not using accessory muscles. CARDIOVASCULAR: Positive S1/S2. No murmurs, rubs or gallops appreciated. ABDOMEN: Soft, nondistended, nontender to palpation. Bowel sounds present. MUSCULOSKELETAL: Strength is 5/5 throughout. No evidence of any musculoskeletal deficit on examination. No weakness appreciated. NEUROLOGICAL: Cranial nerves 2-12 grossly intact. No evidence of any neurological deficit on exam. SKIN: Intact. Warm to touch. Good capillary refill. PSYCHIATRIC: Normal affect and mood. EXTREMITIES: No edema. Good range of motion throughout. IMPRESSION 1. Acute exacerbation of chronic obstructive pulmonary disease. Now still on 6 liters nasal cannula. 2. Hypertension. 3. Uncontrolled type 2 diabetes. 4. Acute hypoxemic respiratory failure secondary to acute exacerbation of chronic obstructive pulmonary disease. 5. Hypothyroidism. PLAN: At this time will continue with IV steroids q.12 h. She will continue with neb treatments and antibiotics. Glucose readings are still slightly elevated but is on sliding scale. Patient definitely qualifies for home O2, which was assessed this morning by Physical Therapy. We are working on home O2 arrangement. Patient will likely be here another 1 or 2 more days until she clinically improves. She refuses custodial facility placement. Continue with Deepali benavides for sundowning. Job#: [id number] EV
[2018-03-18] MEDS: ENOXAPARIN SOD INJ 40 MG/0.4 ML SYR SC SCH (16:42)
[2018-03-18] MEDS: BUDESONIDE/FORMOTEROL 160/4.5MCG INHALER INH SCH (19:35)
[2018-03-18] MEDS: AZITHROMYCIN 500MG/NS 250 ML 250 ML IV SCH (21:48)
[2018-03-18] MEDS: DONEPEZIL HCL 5 MG TAB PO SCH (21:48)
[2018-03-18] MEDS: ATORVASTATIN 20 MG TAB PO SCH (21:48)
[2018-03-18] MEDS: QUETIAPINE FUMARATE 25 MG TAB PO PRN (22:19)
[2018-03-19] VITALS: BP 144/86
[2018-03-19] MEDS: IPRATROPIUM BROMIDE 0.02% 2.5 ML NEB NEB SCH ×5 (02:50→23:45)
[2018-03-19] MEDS: ALBUTEROL SULF 0.083% NEB SOLN 3 ML NEB NEB SCH ×5 (02:50→23:45)
[2018-03-19] MEDS: QUETIAPINE FUMARATE 25 MG TAB PO PRN (05:04)
[2018-03-19] MEDS: LEVOTHYROXINE SODIUM 88 MCG TAB PO SCH (05:05)
[2018-03-19] MEDS: INSULIN REGULAR, HUMAN 100 UNIT/1 ML 3ML VIAL SQ SCH ×4 (07:56→21:11)
[2018-03-19 08:00] VITALS: BP 141/76
[2018-03-19] MEDS: BUDESONIDE/FORMOTEROL 160/4.5MCG INHALER INH SCH ×2 (08:02→21:05)
[2018-03-19] MEDS: METHYLPREDNISOLONE SOD SUCC 40 MG/ML VIAL IV SCH (08:42)
[2018-03-19] MEDS: GLIMEPIRIDE 2 MG TAB PO SCH ×2 (08:42→17:51)
[2018-03-19] MEDS: HYDROCHLOROTHIAZIDE 25 MG TAB PO SCH (08:43)
[2018-03-19] MEDS: NICOTINE 21 MG/EA PATCH TOP SCH (08:43)
[2018-03-19] MEDS: LOSARTAN POTASSIUM 25 MG TAB PO SCH (08:43)
[2018-03-19] MEDS: AMLODIPINE BESYLATE 5 MG TAB PO SCH (08:43)
[2018-03-19] MEDS: PANTOPRAZOLE SOD 40 MG TABEC PO SCH ×2 (08:47→08:50)
[2018-03-19] MEDS: FAMOTIDINE 20 MG/2 ML VIAL IV SCH (09:29)
[2018-03-19 11:42] VITALS: BP 141/76
[2018-03-19 12:47] VITALS: BP 150/81
--- NOTE | 2018-03-19 14:15 | Progress Note ---
DATE: March 19, 2018 SUBJECTIVE: The patient continues to be on 6 L high flow oxygen. The patient continues to desat upon ambulation. No overnight events. The patient lost IV access and now has a midline. OBJECTIVE VITAL SIGNS: Temperature 98.5, pulse 93, respiratory rate 20. She is on 6 L of high flow oxygen. Blood pressure 150/81 and satting 94%. GENERAL: Not in acute distress. Alert and oriented times 3. Cooperative on examination. HEENT: Head is normocephalic and atraumatic. Eyes: Pupils equal, round and reactive to light bilaterally. Extraocular movements intact bilaterally. NECK: Supple. Good range of motion. Throat with no evidence of any erythema or exudates in the posterior pharynx. Has poor dentition. PULMONARY: Expiratory wheezing appreciated. No crackles. No rales. No rhonchi. CARDIOVASCULAR: Positive S1 and S2. No murmurs, rubs or gallops appreciated. ABDOMEN: Soft, nondistended and nontender to palpation. Bowel sounds present. MUSCULOSKELETAL: Strength is 5/5 throughout. No evidence of any muscle deficit on examination. No weakness appreciated. NEUROLOGICAL: Cranial nerves II-XII are grossly intact. No evidence of any neurological deficits on exam. SKIN: Intact. Warm to touch. Good cap refill. PSYCHIATRIC: Normal affect and mood. EXTREMITIES: No edema. Good range of motion throughout. LAB FINDINGS: Show a white count of 11.4, hemoglobin 14.3, hematocrit 43, and platelets of 237,000. Chemistry: Sodium 140, potassium 3.7, chloride 93, bicarb 35, anion gap of 15, BUN is 25, creatinine 0.78, glucose is 246. Calcium is 8.8. MICROBIOLOGY: Blood cultures are negative. IMAGING STUDIES: None. IMPRESSION 1. Acute exacerbation on chronic obstructive pulmonary disease, now on 6 L high flow oxygen. 2. Hypertension. 3. Uncontrolled type 2 diabetes. 4. Acute hypoxemic respiratory failure secondary to acute exacerbation of chronic obstructive pulmonary disease. 5. Hypothyroidism. PLAN: At this time, will continue with the Solu-Medrol at 30 mg IV q.12 h., steroids and neb treatments. Continue with sliding scale insulin for her glucose levels. May add a long-acting Lantus at 10 units at bedtime. Continue working with PT and OT. We are trying to arrange for home O2, but she continues to be on high flow oxygen, which we need to kind of wean her off to nasal cannula at some point. She does get some owning. She does have p.r.n. Seroquel. Will get a.m. labs. The patient will likely be here several more days until we are able to get her on nasal cannula. Job#: [id number] DEEPTHI
[2018-03-19 16:21] VITALS: BP 141/63
[2018-03-19] MEDS: ENOXAPARIN SOD INJ 40 MG/0.4 ML SYR SC SCH (17:51)
[2018-03-19 20:00] VITALS: BP 150/90
[2018-03-19] MEDS: DONEPEZIL HCL 5 MG TAB PO SCH (21:15)
[2018-03-19] MEDS: ATORVASTATIN 20 MG TAB PO SCH (21:15)
[2018-03-19] MEDS: AZITHROMYCIN 500MG/NS 250 ML 250 ML IV SCH (21:15)
[2018-03-20] VITALS (7 sets, daily range): BP systolic 122–145; BP diastolic 60–86
[2018-03-20] MEDS: METHYLPREDNISOLONE SOD SUCC 40 MG/ML VIAL IV SCH ×2 (00:16→08:13)
[2018-03-20] MEDS: FAMOTIDINE 20 MG/2 ML VIAL IV SCH ×3 (00:16→22:00)
[2018-03-20] MEDS: INSULIN DETEMIR 100 UNIT/ML PEN SQ SCH ×2 (00:17→21:34)
[2018-03-20] MEDS: IPRATROPIUM BROMIDE 0.02% 2.5 ML NEB NEB SCH ×6 (03:00→23:40)
[2018-03-20] MEDS: ALBUTEROL SULF 0.083% NEB SOLN 3 ML NEB NEB SCH ×6 (03:00→23:40)
[2018-03-20] MEDS: LEVOTHYROXINE SODIUM 88 MCG TAB PO SCH (05:55)
[2018-03-20] MEDS: BUDESONIDE/FORMOTEROL 160/4.5MCG INHALER INH SCH ×2 (07:00→19:55)
[2018-03-20] MEDS: GLIMEPIRIDE 2 MG TAB PO SCH ×2 (08:13→17:09)
[2018-03-20] MEDS: PANTOPRAZOLE SOD 40 MG TABEC PO SCH (08:13)
[2018-03-20] MEDS: INSULIN REGULAR, HUMAN 100 UNIT/1 ML 3ML VIAL SQ SCH ×4 (08:13→21:33)
[2018-03-20] MEDS: LOSARTAN POTASSIUM 25 MG TAB PO SCH (08:14)
[2018-03-20] MEDS: HYDROCHLOROTHIAZIDE 25 MG TAB PO SCH (08:14)
[2018-03-20] MEDS: AMLODIPINE BESYLATE 5 MG TAB PO SCH (08:14)
[2018-03-20] MEDS: NICOTINE 21 MG/EA PATCH TOP SCH (08:14)
--- NOTE | 2018-03-20 11:59 | Progress Note ---
DATE: March 20, 2018 SUBJECTIVE: Patient is still on 6 liters of high-flow oxygen. She gets very short of breath with ambulation with physical therapy. No overnight events. She now has a midline. Tolerating diet well with no complaints. Pulmonary is following this patient. PHYSICAL EXAMINATION VITAL SIGNS: Temperature is 97.5, pulse 88, respiratory rate is 18, blood pressure is 122/60, she is on 99% oxygen saturation on 6 liters high-flow oxygen. GENERAL: Not in acute distress, alert and oriented x3. Cooperative on examination. HEENT: Head normocephalic and atraumatic. Eyes; pupils equal, round and reactive to light bilaterally. Extraocular movements intact bilaterally. Throat, no evidence of any erythema or exudates in the posterior pharynx, has poor dentition. NECK: Supple. Good range of motion. PULMONARY: Has some expiratory wheezing appreciated. Good inspiratory efforts, still on 6 liters of high-flow oxygen. CARDIOVASCULAR: Positive S1, S2. No murmurs, rubs, or gallops appreciated. ABDOMEN: Soft, nondistended, nontender to palpation. Bowel sounds present. MUSCULOSKELETAL: Strength is 5/5 throughout. No evidence of any muscle deficit on examination. No weakness appreciated. NEUROLOGICAL: Cranial nerves II-XII are grossly intact. No evidence of any neurological deficit on exam. SKIN: Intact. Warm to touch. Good cap refill. PSYCHIATRIC: Normal affect and mood. EXTREMITIES: No edema. Good range of motion throughout. LABORATORY DATA: Labs none. MICROBIOLOGY: None. IMAGING STUDIES: None. IMPRESSION 1. Acute exacerbation on chronic obstructive pulmonary disease, still on 6 liters of high-flow oxygen, very difficult to wean down. 2. Hypertension. 3. Uncontrolled type 2 diabetes. 4. Acute hypoxemic respiratory failure secondary to acute exacerbation of chronic obstructive pulmonary disease. 5. Hypothyroidism. PLAN: At this time, it is very difficult for us to wean her off of the high-flow oxygen. Patient will continue to stay here until we are able to get on nasal cannula. It is also very difficult to transfer her to a retirement facility because the patient still requires high-flow oxygen. At this time, I will get a chest x-ray and labs in the morning. Pulmonary is following. We will continue with IV Solu-Medrol, antibiotics, and neb treatments. Continue to work with PT and OT. We are arranging for home O2 once she is arranging via home health. At this time, we will continue same plan of care. I updated the nursing staff, the patient, and patient's daughter. Job#: [id number] BRANT
[2018-03-20] MEDS: ENOXAPARIN SOD INJ 40 MG/0.4 ML SYR SC SCH (17:09)
[2018-03-20] MEDS ORDERED: SODIUM CHLORIDE 0.9% 250ML 250 ML ONE (20:49)
[2018-03-20] MEDS: DONEPEZIL HCL 5 MG TAB PO SCH (21:32)
[2018-03-20] MEDS: ATORVASTATIN 20 MG TAB PO SCH (21:32)
[2018-03-20] MEDS: QUETIAPINE FUMARATE 25 MG TAB PO PRN (21:33)
[2018-03-20] MEDS: AZITHROMYCIN 500MG/NS 250 ML 250 ML IV SCH (21:34)
[2018-03-21] VITALS (7 sets, daily range): BP systolic 116–149; BP diastolic 63–73
[2018-03-21] MEDS: ALBUTEROL SULF 0.083% NEB SOLN 3 ML NEB NEB SCH ×6 (02:30→23:35)
[2018-03-21] MEDS: IPRATROPIUM BROMIDE 0.02% 2.5 ML NEB NEB SCH ×6 (02:30→23:35)
[2018-03-21 05:01] LABS: BASOPHILS % 0.2 % (0.0-1.0); EOSINOPHILS % 0.3 % (0.0-6.0); HEMATOCRIT 46.4 % (34.2-44.1); HEMOGLOBIN 15.2 g/dL (12.0-16.0); LYMPHOCYTES # (AUTO) 2.2 (1.0-3.2); LYMPHOCYTES % 18.3 % (18.0-39.1); MEAN CORPUSCULAR HGB CONC 32.8 g/dL (31-35); MEAN CORPUSCULAR VOLUME 91.5 fL (81-99); MONOCYTES # (AUTO) 0.9 (0.2-0.8); MONOCYTES % 7.7 % (4.4-11.3); NEUTROPHILS # (AUTO) 8.6 (2.1-6.9); NEUTROPHILS % 72.8 % (38.7-80.0); PLATELET COUNT 335 x10e3/uL (140-360); RED BLOOD COUNT 5.07 x10e6/uL (3.6-5.1); RED CELL DISTRIBUTION WIDTH 14.3 % (11.7-14.4)
[2018-03-21 05:26] LABS: ANION GAP 16.1 mmol/L (8-16); BLOOD UREA NITROGEN 25 mg/dL (7-26); BUN/CREATININE RATIO 34 (6-25); CALCIUM 9.1 mg/dL (8.4-10.2); CARBON DIOXIDE 33 mmol/L (22-29); CHLORIDE 93 mmol/L (98-107); CREATININE, SERUM 0.74 mg/dL (0.57-1.11); EST GLOMERULAR FILTRATION RATE > 60 ML/MIN (60-); GLUCOSE 180 mg/dL (74-118); POTASSIUM 4.1 mmol/L (3.5-5.1); SODIUM 138 mmol/L (136-145)
[2018-03-21] MEDS: LEVOTHYROXINE SODIUM 88 MCG TAB PO SCH (05:29)
--- NOTE | 2018-03-21 06:47 | Diagnostic Imaging Report ---
EXAMINATION: CHEST SINGLE (PORTABLE) INDICATION: Shortness of breath COMPARISON: 03/14/2018 FINDINGS: TUBES and LINES: None. LUNGS: Lungs are well inflated. Lungs are clear. There is mild prominence of the central pulmonary vasculature, consistent with pulmonary venous congestion. PLEURA: No pleural effusion or pneumothorax. HEART AND MEDIASTINUM: Cardiac size is moderately enlarged. There are atherosclerotic calcifications within the aorta. BONES AND SOFT TISSUES: No acute osseous lesion. Soft tissues are unremarkable. UPPER ABDOMEN: No free air under the diaphragm. IMPRESSION: No acute thoracic abnormality. Cardiomegaly without decompensation. Signed by: Dr. Russell Simons M.D. on 03/21/2018 6:43 AM
[2018-03-21] MEDS: PANTOPRAZOLE SOD 40 MG TABEC PO SCH (08:23)
[2018-03-21] MEDS: METHYLPREDNISOLONE SOD SUCC 40 MG/ML VIAL IV SCH (08:23)
[2018-03-21] MEDS: INSULIN REGULAR, HUMAN 100 UNIT/1 ML 3ML VIAL SQ SCH ×4 (08:24→21:01)
[2018-03-21] MEDS: GLIMEPIRIDE 2 MG TAB PO SCH ×2 (08:24→17:45)
[2018-03-21] MEDS: HYDROCHLOROTHIAZIDE 25 MG TAB PO SCH (08:24)
[2018-03-21] MEDS: LOSARTAN POTASSIUM 25 MG TAB PO SCH (08:24)
[2018-03-21] MEDS: NICOTINE 21 MG/EA PATCH TOP SCH (08:25)
[2018-03-21] MEDS: AMLODIPINE BESYLATE 5 MG TAB PO SCH (08:25)
[2018-03-21] MEDS: FAMOTIDINE 20 MG/2 ML VIAL IV SCH ×2 (10:05→21:51)
[2018-03-21] MEDS: BUDESONIDE/FORMOTEROL 160/4.5MCG INHALER INH SCH ×2 (11:45→19:55)
[2018-03-21] MEDS ORDERED: FUROSEMIDE INJ 10 MG/ML 4 ML VIAL IV SCH (14:15)
--- NOTE | 2018-03-21 14:54 | Progress Note ---
DATE: March 21, 2018 SUBJECTIVE: Patient continues to be on high-flow oxygen 5 liters. There is no change overnight. She states breathing well with no other complaints. OBJECTIVE VITAL SIGNS: Temperature is 98, pulse 87, respiratory rate is 17, blood pressure 120/63, pulse ox 93%. She is on 5 liters of high-flow oxygen. LAB FINDINGS: Show white count is 11.8, hemoglobin 15, hematocrit is 46, platelets of 335. Chemistry: Sodium 138, potassium 4.1, chloride 93, bicarb is 33, anion gap of 16, BUN is 25, creatinine is 0.74, glucose is 180, calcium is 9.1. Urinalysis, none. MICROBIOLOGY: Blood cultures were negative. IMAGING STUDIES: Chest x-ray this morning showed mild pulmonary venous congestion, otherwise no other acute findings. PHYSICAL EXAMINATION GENERAL: Not in acute distress. Alert, oriented x3, cooperative on examination. HEENT: Head: Normocephalic, atraumatic. Eyes: Pupils equally round and reactive to light bilaterally. Extraocular movements intact bilaterally. Neck was supple with good range of motion. Throat: No evidence of any erythema or exudates in the posterior pharynx. Has poor dentition. PULMONARY: Decreased breath sounds bilaterally. Has some expiratory wheezing. She is on 5 liters of high-flow oxygen. No crackles, no rales. CARDIOVASCULAR: Positive S1/S2. No murmurs, rubs or gallops appreciated. ABDOMEN: Soft, nondistended, nontender to palpation. Bowel sounds present. MUSCULOSKELETAL: Strength is 5/5 throughout. NEUROLOGICAL: No evidence of any neurological deficit on exam. SKIN: Intact. Warm to touch. Good capillary refill. PSYCHIATRIC: Normal affect and mood. EXTREMITIES: No edema. Good range of motion throughout. IMPRESSION 1. Acute exacerbation of chronic obstructive pulmonary disease. Now weaned to 5 liters of high-flow oxygen and very difficult to wean down. 1. Hypertension. 2. Type 2 diabetes. 3. Acute hypoxemic respiratory failure secondary to acute exacerbation of chronic obstructive pulmonary disease. 4. Hypothyroidism. PLAN: At this time I will continue with same plan of action. Continue with steroids, neb treatments and antibiotics. She will continue to work with PT and To. Patient is very difficult to wean down her oxygen. She is currently on 5 liters of high-flow oxygen. We are going to give her some Lasix 40 mg IV x3 doses to see if that will help. I discussed the plan of care with the daughter and the patient at bedside, and they verbalized understanding. The patient will be here until she is weaned down to nasal cannula. At this time it would be very difficult for me to transition to a care home facility as they are likely unable to accommodate her due to the high oxygen. Job#: [id number] EV
[2018-03-21] MEDS: FUROSEMIDE INJ 10 MG/ML 4 ML VIAL IV SCH (16:00)
[2018-03-21] MEDS: ENOXAPARIN SOD INJ 40 MG/0.4 ML SYR SC SCH (17:45)
[2018-03-21] MEDS: INSULIN DETEMIR 100 UNIT/ML PEN SQ SCH (21:01)
[2018-03-21] MEDS: QUETIAPINE FUMARATE 25 MG TAB PO PRN (21:02)
[2018-03-21] MEDS: ATORVASTATIN 20 MG TAB PO SCH (21:02)
[2018-03-21] MEDS: DONEPEZIL HCL 5 MG TAB PO SCH (21:02)
[2018-03-22 00:39] VITALS: BP 127/68
[2018-03-22] MEDS: FUROSEMIDE INJ 10 MG/ML 4 ML VIAL IV SCH ×2 (00:39→08:16)
[2018-03-22] MEDS: IPRATROPIUM BROMIDE 0.02% 2.5 ML NEB NEB SCH ×6 (01:55→22:55)
[2018-03-22] MEDS: ALBUTEROL SULF 0.083% NEB SOLN 3 ML NEB NEB SCH ×6 (01:55→23:02)
[2018-03-22 05:03] LABS: BASOPHILS % 0.2 % (0.0-1.0); EOSINOPHILS # (AUTO) 0.1 (0.0-0.4); EOSINOPHILS % 0.8 % (0.0-6.0); HEMATOCRIT 47.3 % (34.2-44.1); HEMOGLOBIN 15.5 g/dL (12.0-16.0); LYMPHOCYTES # (AUTO) 1.9 (1.0-3.2); LYMPHOCYTES % 16.2 % (18.0-39.1); MEAN CORPUSCULAR HEMOGLOBIN 29.7 pg (28-32); MEAN CORPUSCULAR HGB CONC 32.8 g/dL (31-35); MEAN CORPUSCULAR VOLUME 90.6 fL (81-99); MONOCYTES # (AUTO) 0.9 (0.2-0.8); MONOCYTES % 7.7 % (4.4-11.3); NEUTROPHILS # (AUTO) 8.9 (2.1-6.9); NEUTROPHILS % 74.4 % (38.7-80.0); PLATELET COUNT 311 x10e3/uL (140-360); RED BLOOD COUNT 5.22 x10e6/uL (3.6-5.1); RED CELL DISTRIBUTION WIDTH 14.2 % (11.7-14.4)
[2018-03-22] MEDS: LEVOTHYROXINE SODIUM 88 MCG TAB PO SCH (05:19)
[2018-03-22 05:25] LABS: ANION GAP 17.4 mmol/L (8-16); BLOOD UREA NITROGEN 31 mg/dL (7-26); BUN/CREATININE RATIO 38 (6-25); CALCIUM 9.5 mg/dL (8.4-10.2); CARBON DIOXIDE 36 mmol/L (22-29); CHLORIDE 86 mmol/L (98-107); CREATININE, SERUM 0.81 mg/dL (0.57-1.11); EST GLOMERULAR FILTRATION RATE > 60 ML/MIN (60-); GLUCOSE 182 mg/dL (74-118); POTASSIUM 3.4 mmol/L (3.5-5.1); SODIUM 136 mmol/L (136-145)
[2018-03-22] MEDS: BUDESONIDE/FORMOTEROL 160/4.5MCG INHALER INH SCH ×2 (07:38→19:05)
[2018-03-22 08:00] VITALS: BP 119/59
[2018-03-22] MEDS: INSULIN REGULAR, HUMAN 100 UNIT/1 ML 3ML VIAL SQ SCH ×4 (08:00→21:00)
[2018-03-22] MEDS: METHYLPREDNISOLONE SOD SUCC 40 MG/ML VIAL IV SCH (08:15)
[2018-03-22] MEDS: PANTOPRAZOLE SOD 40 MG TABEC PO SCH (08:15)
[2018-03-22] MEDS: GLIMEPIRIDE 2 MG TAB PO SCH ×2 (08:16→16:20)
[2018-03-22] MEDS: HYDROCHLOROTHIAZIDE 25 MG TAB PO SCH (08:28)
[2018-03-22] MEDS: NICOTINE 21 MG/EA PATCH TOP SCH (08:28)
[2018-03-22] MEDS: AMLODIPINE BESYLATE 5 MG TAB PO SCH (08:28)
[2018-03-22] MEDS: LOSARTAN POTASSIUM 25 MG TAB PO SCH (08:28)
[2018-03-22] MEDS: FAMOTIDINE 20 MG/2 ML VIAL IV SCH (09:13)
--- NOTE | 2018-03-22 10:21 | Progress Note ---
DATE: March 22, 2018 SUBJECTIVE: Patient continues to be on high flow oxygen. She is currently on 5 L. She has improved a little bit. She is very weak on examination. No overnight events. OBJECTIVE VITALS: Temperature 98.2, pulse 101, respiratory rate 18, blood pressure 119/59, pulse ox is she was 90% on 5 L of high flow oxygen during examination. GENERAL: Not in acute distress. Alert and oriented times 3. Cooperative on examination. HEENT: Head is normocephalic and atraumatic. Eyes: Pupils equal, round and reactive to light bilaterally. Extraocular movements intact bilaterally. NECK: Supple. Good range of motion. Throat with no evidence of any erythema or exudates in the posterior pharynx. Has poor dentition. PULMONARY: Clear to auscultation bilaterally. No wheezing. No rales. No rhonchi. No crackles appreciated. CARDIOVASCULAR: Positive S1 and S2. No murmurs, rubs or gallops appreciated. ABDOMEN: Soft, nondistended and nontender to palpation. Bowel sounds present. MUSCULOSKELETAL: Strength is 5/5 throughout. No evidence of any muscle deficit on examination. No weakness appreciated. NEUROLOGICAL: Cranial nerves II-XII are grossly intact. No evidence of any neurological deficits on exam. SKIN: Intact. Warm to touch. Good cap refill. PSYCHIATRIC: Normal affect and mood. EXTREMITIES: No edema. Good range of motion throughout. LABS FINDINGS: White count 11.9, hemoglobin 15.5, hematocrit is 47, and platelets of 311,000. Chemistry: Sodium 136, potassium 3.4, chloride 86, bicarb 36, BUN is 31, glucose is 182. Calcium 9.5. MICROBIOLOGY: None. IMAGING STUDIES: None. IMPRESSION 1. Acute exacerbation of chronic obstructive pulmonary disease: Currently, on 5 L high flow oxygen. 2. Hypertension. 3. Type 2 diabetes. 4. Acute hypoxemic respiratory failure secondary to chronic obstructive pulmonary disease. 5. Hypothyroidism. PLAN: At this time, she is still on 5 L of high flow oxygen, which will not likely be able to be transferred to a shelter facility. Will continue with weaning her down. Continue with IV steroids, neb treatments and antibiotics. Will also give her some Lasix, which seems to have improved her respiratory status. The daughter and the patient wants to go to shelter, which I agree with, but currently with the high flow oxygen, she will have to be weaned down to nasal cannula in order for them to accommodate her. We will get case management involved to find a place, and hopefully some time next week she can be discharged. Pulmonary is following. Otherwise, no changes. Her potassium was low, which will be replaced. Job#: [id number] RI
[2018-03-22] MEDS ORDERED: POTASSIUM CHLORIDE 20 MEQ TAB CR PO NR (10:30)
[2018-03-22 12:00] VITALS: BP 98/47
[2018-03-22 16:00] VITALS: BP 95/45
[2018-03-22 20:00] VITALS: BP 107/56
[2018-03-22] MEDS: DONEPEZIL HCL 5 MG TAB PO SCH (21:00)
[2018-03-22] MEDS: INSULIN DETEMIR 100 UNIT/ML PEN SQ SCH (21:00)
[2018-03-22] MEDS: FAMOTIDINE 20 MG TAB PO SCH (21:00)
[2018-03-22] MEDS: ATORVASTATIN 20 MG TAB PO SCH (21:00)
[2018-03-23] VITALS: BP 104/42
[2018-03-23] MEDS: IPRATROPIUM BROMIDE 0.02% 2.5 ML NEB NEB SCH ×6 (02:10→22:58)
[2018-03-23] MEDS: ALBUTEROL SULF 0.083% NEB SOLN 3 ML NEB NEB SCH ×6 (02:10→22:58)
[2018-03-23 04:00] VITALS: BP 104/61
[2018-03-23] MEDS: LEVOTHYROXINE SODIUM 88 MCG TAB PO SCH (06:28)
[2018-03-23 08:00] VITALS: BP 111/64
[2018-03-23] MEDS: INSULIN REGULAR, HUMAN 100 UNIT/1 ML 3ML VIAL SQ SCH ×4 (08:00→20:41)
[2018-03-23] MEDS: BUDESONIDE/FORMOTEROL 160/4.5MCG INHALER INH SCH ×2 (08:34→19:28)
[2018-03-23] MEDS: METHYLPREDNISOLONE SOD SUCC 40 MG/ML VIAL IV SCH (08:58)
[2018-03-23] MEDS: PANTOPRAZOLE SOD 40 MG TABEC PO SCH (08:58)
[2018-03-23] MEDS: GLIMEPIRIDE 2 MG TAB PO SCH ×2 (08:59→16:55)
[2018-03-23] MEDS: AMLODIPINE BESYLATE 5 MG TAB PO SCH (09:13)
[2018-03-23] MEDS: HYDROCHLOROTHIAZIDE 25 MG TAB PO SCH (09:13)
[2018-03-23] MEDS: NICOTINE 21 MG/EA PATCH TOP SCH (09:13)
[2018-03-23] MEDS: FAMOTIDINE 20 MG TAB PO SCH ×2 (09:13→21:20)
[2018-03-23] MEDS: LOSARTAN POTASSIUM 25 MG TAB PO SCH (09:13)
--- NOTE | 2018-03-23 09:47 | Progress Note ---
DATE: March 23, 2018 SUBJECTIVE: The patient is on 4 liters of high-flow oxygen, which is improving, but when we try to wean her off even lower she tends to desat. She states she is breathing much better today with no issues. She is tolerating diet. No overnight events. She maintained 5 liters of high-flow oxygen at bedtime overnight. OBJECTIVE VITAL SIGNS: Temperature 97.6, pulse 93, respiratory rate 20, blood pressure 104/61. She is on currently 4 liters high-flow oxygen. GENERAL: Not in any acute distress, alert and oriented x3, cooperative on examination. HEENT: Head normocephalic and atraumatic. Eyes: Pupils equal, round and reactive to light bilaterally. Extraocular movements intact bilaterally. NECK: Supple. Good range of motion. Throat with no evidence of any erythema or exudates in the posterior pharynx. Has poor dentition. PULMONARY: Clear to auscultation bilaterally. She does have some expiratory wheezing appreciated. No crackles, no rales, no rhonchi. CARDIOVASCULAR: Positive S1 and S2. No murmurs, rubs or gallops appreciated. ABDOMEN: Soft, nondistended, nontender to palpation. Bowel sounds present. MUSCULOSKELETAL: Strength is 5/5 throughout. No evidence of any muscle deficit on examination. No weakness appreciated. NEUROLOGICAL: Cranial nerves II-XII are grossly intact. No evidence of any neurological deficits on exam. SKIN: Intact. Warm to touch. Good cap refill. PSYCHIATRIC: Normal affect and mood. EXTREMITIES: No edema. Good range of motion throughout. LABORATORY DATA: White count of 11.9, hemoglobin 15, hematocrit 47 and platelets of 311,000. Chemistry: None. Microbiology: None. IMAGING: None. IMPRESSION 1. Acute hypoxemic respiratory failure due to chronic obstructive pulmonary disease exacerbation, currently on 4 liters high-flow oxygen. 2. Hypertension. 3. Type 2 diabetes. 4. Hypothyroidism. 5. Morbidly obese. PLAN: At this time, she is on 4 liters high-flow oxygen, which she is slowly improving. She reports that she is breathing well. I discussed this case with case management with and there are some half-way facilities that do accommodate high-flow oxygen, which I will re-evaluate on Sunday and see how much she can be weaned down over the weekend. I am going to continue with IV steroids, nebulizer treatments and antibiotics. Pulmonary is following. Her electrolytes are stable. I feel like she will be here through the weekend and likely be able to get her placed early next week. We are going to continue with PT and OT. Job#: [id number] GH
[2018-03-23 12:00] VITALS: BP 123/74
[2018-03-23 16:00] VITALS: BP 108/57
[2018-03-23 20:00] VITALS: BP 121/84
[2018-03-23] MEDS: INSULIN DETEMIR 100 UNIT/ML PEN SQ SCH (20:43)
[2018-03-23] MEDS: ATORVASTATIN 20 MG TAB PO SCH (21:20)
[2018-03-23] MEDS: DONEPEZIL HCL 5 MG TAB PO SCH (21:20)
[2018-03-24] VITALS (7 sets, daily range): BP systolic 105–140; BP diastolic 54–95
[2018-03-24] MEDS: IPRATROPIUM BROMIDE 0.02% 2.5 ML NEB NEB SCH ×6 (02:50→23:10)
[2018-03-24] MEDS: ALBUTEROL SULF 0.083% NEB SOLN 3 ML NEB NEB SCH ×6 (02:50→23:10)
[2018-03-24] MEDS: LEVOTHYROXINE SODIUM 88 MCG TAB PO SCH (05:38)
[2018-03-24] MEDS: BUDESONIDE/FORMOTEROL 160/4.5MCG INHALER INH SCH ×2 (07:58→19:35)
[2018-03-24] MEDS: LOSARTAN POTASSIUM 25 MG TAB PO SCH (09:11)
[2018-03-24] MEDS: METHYLPREDNISOLONE SOD SUCC 40 MG/ML VIAL IV SCH (09:11)
[2018-03-24] MEDS: NICOTINE 21 MG/EA PATCH TOP SCH (09:11)
[2018-03-24] MEDS: GLIMEPIRIDE 2 MG TAB PO SCH ×2 (09:11→16:57)
[2018-03-24] MEDS: AMLODIPINE BESYLATE 5 MG TAB PO SCH (09:11)
[2018-03-24] MEDS: HYDROCHLOROTHIAZIDE 25 MG TAB PO SCH (09:11)
[2018-03-24] MEDS: PANTOPRAZOLE SOD 40 MG TABEC PO SCH (09:11)
[2018-03-24] MEDS: FAMOTIDINE 20 MG TAB PO SCH ×2 (09:11→20:56)
[2018-03-24] MEDS: INSULIN REGULAR, HUMAN 100 UNIT/1 ML 3ML VIAL SQ SCH ×4 (09:12→20:56)
--- NOTE | 2018-03-24 10:01 | Progress Note ---
DATE: March 24, 2018 SUBJECTIVE: The patient is sitting up in a chair doing very well. She is on 3 liters of high-flow oxygen. The patient is tremendously improved compared to yesterday. She states breathing much better. OBJECTIVE VITAL SIGNS: Temperature 98.7, pulse 98, respiratory rate 20, blood pressure 121/90, pulse oximetry 91% on 3 liters of high-flow oxygen. GENERAL: In no acute distress, alert and oriented x3, cooperative on examination. HEENT: Head is normocephalic, atraumatic. Eyes: Pupils equal, round and reactive to light bilaterally. Extraocular movements intact bilaterally. Throat with no evidence of erythema or exudates in the posterior pharynx. She has poor dentition. NECK: Supple with good range of motion. PULMONARY: Some expiratory wheezing appreciated, but good inspiratory efforts. No crackles, no rales, no rhonchi. CARDIOVASCULAR: Positive S1 and S2, no murmurs, rubs or gallops appreciated. ABDOMEN: Soft, nondistended, nontender on palpation. Bowel sounds were present. MUSCULOSKELETAL: Strength 5/5 throughout. NEUROLOGIC: No evidence of neurological deficit on examination. SKIN: Intact. Warm to touch. Good capillary refill. EXTREMITIES: No edema. Good range of motion throughout. PSYCHIATRIC: Normal affect and mood. LABORATORY DATA: None. MICROBIOLOGY: None. IMAGING STUDIES: None. IMPRESSION 1. Acute hypoxemic respiratory failure secondary to chronic obstructive pulmonary disease exacerbation. Currently on 3 liters high-flow oxygen. 2. Hypertension. 3. Type 2 diabetes. 4. Hypothyroidism. 5. Morbidly obese. PLAN: At this time, the patient is improved on 3 liters high-flow oxygen. She is sitting in a chair with no complaints. Pulmonary is following. Continue with steroids, nebulizer treatments and antibiotics. We are going to arrange for long term facility, likely tomorrow, for her to be discharged. Otherwise, will continue with the same plan of care. Job#: [id number]
[2018-03-24] MEDS: DONEPEZIL HCL 5 MG TAB PO SCH (20:56)
[2018-03-24] MEDS: ATORVASTATIN 20 MG TAB PO SCH (20:56)
[2018-03-24] MEDS: INSULIN DETEMIR 100 UNIT/ML PEN SQ SCH (20:57)
[2018-03-25] VITALS (10 sets, daily range): BP systolic 99–139; BP diastolic 58–97
[2018-03-25] MEDS: ALBUTEROL SULF 0.083% NEB SOLN 3 ML NEB NEB SCH ×6 (03:05→23:10)
[2018-03-25] MEDS: IPRATROPIUM BROMIDE 0.02% 2.5 ML NEB NEB SCH ×6 (03:05→23:10)
[2018-03-25 05:10] LABS: ANION GAP 13.9 mmol/L (8-16); BLOOD UREA NITROGEN 37 mg/dL (7-26); BUN/CREATININE RATIO 53 (6-25); CALCIUM 9.2 mg/dL (8.4-10.2); CARBON DIOXIDE 32 mmol/L (22-29); CHLORIDE 95 mmol/L (98-107); EST GLOMERULAR FILTRATION RATE > 60 ML/MIN (60-); GLUCOSE 76 mg/dL (74-118); SODIUM 138 mmol/L (136-145)
[2018-03-25 05:44] LABS: POTASSIUM 2.9 mmol/L (3.5-5.1)
[2018-03-25] MEDS: LEVOTHYROXINE SODIUM 88 MCG TAB PO SCH (06:07)
[2018-03-25] MEDS: BUDESONIDE/FORMOTEROL 160/4.5MCG INHALER INH SCH ×2 (07:30→19:55)
[2018-03-25] MEDS: GLIMEPIRIDE 2 MG TAB PO SCH ×2 (08:00→16:50)
[2018-03-25] MEDS: INSULIN REGULAR, HUMAN 100 UNIT/1 ML 3ML VIAL SQ SCH ×4 (08:23→20:58)
[2018-03-25] MEDS: PANTOPRAZOLE SOD 40 MG TABEC PO SCH (08:24)
[2018-03-25] MEDS: POTASSIUM CHLORIDE 10 MEQ TABCR PO SCH ×2 (08:26→16:50)
[2018-03-25] MEDS: HYDROCHLOROTHIAZIDE 25 MG TAB PO SCH (09:30)
[2018-03-25] MEDS: LOSARTAN POTASSIUM 25 MG TAB PO SCH (09:30)
[2018-03-25] MEDS: NICOTINE 21 MG/EA PATCH TOP SCH (09:30)
[2018-03-25] MEDS: PREDNISONE 20 MG TAB PO SCH (09:30)
[2018-03-25] MEDS: FAMOTIDINE 20 MG TAB PO SCH ×2 (09:30→20:55)
[2018-03-25] MEDS: AMLODIPINE BESYLATE 5 MG TAB PO SCH (09:30)
--- NOTE | 2018-03-25 11:59 | Progress Note ---
DATE: March 25, 2018 SUBJECTIVE: No overnight events. The patient is now improving. She is off of high-flow oxygen and currently on like 8 to 9 liters of nasal cannula. She is satting in the low 90s, but she is comfortable and has no other complaints at this time. OBJECTIVE VITAL SIGNS: Temperature 97, pulse 87, respiratory rate 22, blood pressure 139/73, pulse ox 92%. She is on nasal cannula as we speak. LABS: CBC: None. Chemistry: Sodium 138, potassium 2.9, chloride 95, bicarb 32, anion gap 13, BUN 37, creatinine 0.7, glucose 152, calcium 9.2. Blood cultures: No growth to date. PHYSICAL EXAMINATION GENERAL: Not in acute distress, alert and oriented x3, cooperative on examination. HEENT: Head is normocephalic and atraumatic. Eyes: Pupils are equal and reactive to light bilaterally. Extraocular movements intact bilaterally. NECK: Supple with good range of motion. THROAT: No evidence of any erythema or exudates in the posterior pharynx. Has poor dentition. PULMONARY: Clear to auscultation bilaterally. No wheezing, no rales, no rhonchi, no crackles appreciated. CARDIOVASCULAR: Positive S1 and S2. No murmurs, rubs or gallops appreciated. ABDOMEN: Soft, nondistended, nontender on palpation. Bowel sounds are present. MUSCULOSKELETAL: Strength is 5/5 throughout. No evidence of any musculoskeletal deficit on examination. No weakness appreciated. NEUROLOGIC: Cranial nerves II through XII grossly intact. No evidence of any neurologic deficit on exam. SKIN: Intact. Warm to touch. Good cap refill. PSYCHIATRIC: Normal affect and mood. EXTREMITIES: No edema. Good range of motion throughout. IMPRESSION 1. Acute hypoxemic respiratory failure secondary to chronic obstructive pulmonary disease exacerbation. Now on nasal cannula, much improved. 2. Hypertension. 3. Type-2 diabetes. 4. Hypothyroidism. 5. Morbidly obese. 6. Hypokalemia. PLAN: At this time, she is on nasal cannula and much improved now. Will continue with neb treatments, steroids, and antibiotics. Pulmonary is following. We will try to wean her even more down. Now she is physically debilitated, and PT and OT are working with her. The plan overall is to arrange for assisted facility, which I have discussed with case management. Potassium 40 mEq p.o. b.i.d., replace times 2 doses. Job#: [id number]
[2018-03-25] MEDS: ATORVASTATIN 20 MG TAB PO SCH (20:55)
[2018-03-25] MEDS: DONEPEZIL HCL 5 MG TAB PO SCH (20:55)
[2018-03-25] MEDS: INSULIN DETEMIR 100 UNIT/ML PEN SQ SCH (20:58)
[2018-03-26 03:28] VITALS: BP 111/78
[2018-03-26] MEDS: ALBUTEROL SULF 0.083% NEB SOLN 3 ML NEB NEB SCH ×4 (03:46→15:15)
[2018-03-26] MEDS: IPRATROPIUM BROMIDE 0.02% 2.5 ML NEB NEB SCH ×4 (03:46→15:15)
[2018-03-26] MEDS: LEVOTHYROXINE SODIUM 88 MCG TAB PO SCH (05:27)
[2018-03-26] MEDS: BUDESONIDE/FORMOTEROL 160/4.5MCG INHALER INH SCH (07:40)
[2018-03-26 08:00] VITALS: BP 127/66
[2018-03-26 08:07] LABS: ANION GAP 14.8 mmol/L (8-16); BLOOD UREA NITROGEN 31 mg/dL (7-26); BUN/CREATININE RATIO 38 (6-25); CALCIUM 9.7 mg/dL (8.4-10.2); CARBON DIOXIDE 31 mmol/L (22-29); CHLORIDE 95 mmol/L (98-107); CREATININE, SERUM 0.82 mg/dL (0.57-1.11); EST GLOMERULAR FILTRATION RATE > 60 ML/MIN (60-); GLUCOSE 206 mg/dL (74-118); POTASSIUM 3.8 mmol/L (3.5-5.1); SODIUM 137 mmol/L (136-145)
[2018-03-26] MEDS: GLIMEPIRIDE 2 MG TAB PO SCH ×2 (08:15→17:07)
[2018-03-26] MEDS: PANTOPRAZOLE SOD 40 MG TABEC PO SCH (08:15)
[2018-03-26] MEDS: INSULIN REGULAR, HUMAN 100 UNIT/1 ML 3ML VIAL SQ SCH ×3 (08:21→17:08)
[2018-03-26] MEDS: AMLODIPINE BESYLATE 5 MG TAB PO SCH (08:33)
[2018-03-26] MEDS: LOSARTAN POTASSIUM 25 MG TAB PO SCH (08:33)
[2018-03-26] MEDS: FAMOTIDINE 20 MG TAB PO SCH (08:33)
[2018-03-26] MEDS: HYDROCHLOROTHIAZIDE 25 MG TAB PO SCH (08:33)
[2018-03-26] MEDS: NICOTINE 21 MG/EA PATCH TOP SCH (08:33)
[2018-03-26] MEDS: PREDNISONE 20 MG TAB PO SCH (08:33)
[2018-03-26 09:00] VITALS: BP 127/66
[2018-03-26 12:00] VITALS: BP 98/57
[2018-03-26 16:27] VITALS: BP 101/56
--- NOTE | 2018-03-26 17:31 | Discharge Summary ---
DISCHARGE DIAGNOSES: 1. Acute exacerbation of chronic obstructive pulmonary disease. 2. Acute hypoxemic respiratory failure secondary to chronic obstructive pulmonary disease. 3. Hypertension. 4. Type 2 diabetes. 5. Hypothyroidism. 6. Morbidly obese. 7. Medical noncompliance. 8. Chronic smoker. CONSULTANTS: Pulmonary. VITAL SIGNS: Temperature is 97.8, pulse 102, respiratory rate is 18, blood pressure 127/66, pulse ox 93% on 3 liters nasal cannula. LAB FINDINGS: Show white count 11, hemoglobin 15, hematocrit 47, platelets of 311. Chemistry: Sodium 137, potassium 3.8, chloride 95, bicarb 31, anion gap of 14, BUN 31, creatinine is 0.82, glucose is 206, calcium 9.7. MICROBIOLOGY: Blood cultures were negative. IMAGING STUDIES: Chest x-ray on admission showed some central pulmonary venous congestion with perihilar interstitial opacities reflecting underlying volume overload. Chest x-ray prior to discharge, no acute thoracic abnormality, cardiomegaly without decompensation. CT chest shows no evidence of pulmonary embolism, bilateral upper lobe emphysematous changes, bilateral subsegmental linear atelectasis. HOSPITAL COURSE: This is an 82-year-old female who is a chronic smoker who has underlying COPD. Comes into the ED with underlying acute hypoxemic respiratory failure, shortness of breath and wheezing. Patient was admitted in IMU status. Pulmonary was consulted. Patient was on high-flow oxygen for several days and then was eventually weaned down to nasal cannula 3 liters. Patient was on steroids and neb treatments. Pulmonary was consulted and following accordingly. Patient had physical therapy and occupational therapy, and the patient would desat upon exercise. In relation to her blood pressure, it was well managed and controlled. Her diabetes was slightly elevated due to steroids but much improved. Patient was improved tremendously and was ready for discharge to a custodial facility. The patient be discharged on some nebulizer treatments as well as steroids for 2 weeks. On the day of discharge, vital signs stable, labs reviewed and stable. Patient seen, evaluated and examined thoroughly on the day of discharge with no other complaints. Patient verbalized understanding and agrees to plan of care to follow up accordingly as an outpatient with her primary care physician in 1 week and dust mixer in 1 to 2 weeks. DISCHARGE MEDICATIONS: See med reconciliation form including prednisone taper over 2 weeks. DISPOSITION: To a custodial facility. CONDITION: Stable. DIET: Heart healthy diabetic. FOLLOWUP: With your primary care physician and dust mixer in the next 1 week. In the event of any worsening symptoms, patient advised to come back to the ED for further evaluation. Discharge summary took greater than 35 minutes. ZELDA BRIDGES MD Job#: [id number] EV
[2018-03-26 19:17] VITALS: BP 103/57
--- NOTE | 2018-04-01 09:35 | Pulmonary Function Test ---
DATE OF STUDY: March 20, 2018 SPIROMETRY REPORT Patient of Dr. Sauer. Effort suboptimal, making interpretation reliable. Spirometry reveals restrictive pattern, which is quite severe. FVC 0.4 L, 18% of predicted. FEV1 0.34 L, 20% of predicted. FEV1 and FVC ratio 85% restrictive pattern. Effort was suboptimal, making this an unreliable study. Job#: [id number] SUB
== END 2018-03-26 20:13 | DRG 189 ==
LOC: ER 16:18 → ERHOLD 22:02 → IMCU 03-15 16:28
PROVIDERS: ADMIT Internal Medicine; ATTEND Internal Medicine
PROC: 5A09357 Assistance with Respiratory Ventilation, Less than 24 Consecutive Hours, Continuous Positive Airway Pressure (ICD-10-PCS; principal; 2018-03-14)
DX: J96.01 Acute respiratory failure with hypoxia (principal); J44.1 Chronic obstructive pulmonary disease with (acute) exacerbation; F05 Delirium due to known physiological condition; J98.11 Atelectasis; Z87.891 Personal history of nicotine dependence; I10 Essential (primary) hypertension; F03.90 Unspecified dementia, unspecified severity, without behavioral disturbance, psychotic disturbance, mood disturbance, and anxiety; E78.5 Hyperlipidemia, unspecified; E03.9 Hypothyroidism, unspecified; E11.65 Type 2 diabetes mellitus with hyperglycemia; E87.6 Hypokalemia; E66.01 Morbid (severe) obesity due to excess calories; F17.210 Nicotine dependence, cigarettes, uncomplicated; J96.22 Acute and chronic respiratory failure with hypercapnia; S92.202D Fracture of unspecified tarsal bone(s) of left foot, subsequent encounter for fracture with routine healing; Z68.36 Body mass index [BMI] 36.0-36.9, adult; Z91.19 Patient's noncompliance with other medical treatment and regimen; F41.9 Anxiety disorder, unspecified
CPT/HCPCS: 36415; 36568; 36600; 51700; 71045; 71260; 74470; 80048; 80053; 80061; 81001; 82550; 82553; 82805; 82948; 83605; 83690; 83735; 83880; 84484; 85025; 87040; 93005; 93306; 94010; 94640; 94660; 96372; 97139; 99285; J0456; J1650; J1940; J2405; J2920; J2930; J7050; Q9967